=== PATIENT | female | born 1970 | race Caucasian/White ===

== ENCOUNTER 2024-12-16 06:11 | Day surgery (SDC) | payer BC ==
--- NOTE | 2024-12-13 14:16 | RAD REPORT ---
Procedure: Chest Pa And Lat (2 Views) HISTORY: Preop for hysterectomy COMPARISON: none FINDINGS: The lungs appear clear of acute infiltrate. No significant pleural effusion noted. The heart is mildly to moderately enlarged. IMPRESSION: No acute abnormality is displayed.
[2024-12-13 14:17] LABS: Sqamous Epithelial <5 /HPF (None Seen); Urine Crystals Unidentified Few /HPF (None Seen); Urine Culture Reflex Order NOT NEEDED; Urine Microscopic Reflex YN ORDER UMIC; Urine Yeast (Budding) Trace /HPF (None Seen)
[2024-12-13 14:23] LABS: Anion Gap 8.4 mEq/L (5.0-15.0); BUN Blood Urea Nitrogen 12.0 mg/dL (7-18); Glucose Level 83.0 mg/dL (74-106); Potassium 4.4 mEq/L (3.5-5.1)
[2024-12-13 14:44] LABS: Absolute Lymphocytes (CBC) 2.1 K/uL (0.7-4.9); Hematocrit 29.9 % (36.0-45.0); Hemoglobin 9.0 g/dL (12.0-15.0); MCH 19.8 pg (27.0-35.0); MCHC 30.0 g/dL (32.0-36.0); MCV 66.1 fL (80-100); MPV 7.0 fL (7.6-11.3); Nucleated RBC Absolute Count 0.0 (0-0); Nucleated Red Blood Cells % 0.0 % (0-0); RBC Red Blood Cell Count 4.53 M/uL (3.86-4.86); White Blood Count 6.70 thou/uL (4.3-10.9)
[2024-12-13 15:59] LABS: White Blood Cell Scan OK (OK)
[2024-12-13 16:00] LABS: Anisocytosis SLIGHT; Blood Morphology Comment NOTED (NOT SEEN); Hypochromasia 1+; Polychromasia SLIGHT
[2024-12-16] MEDS: Ringers Lactate 1,000 ML IV ONE ×2 (06:30→09:28)
[2024-12-16] MEDS: SCOPOLAMINE HYDROBROMIDE PATCH TD ONE (06:40)
[2024-12-16] MEDS ORDERED: ONDANSETRON 4 MG/2 ML VIAL ONE (06:54)
[2024-12-16] MEDS ORDERED: ROCURONIUM 50 MG/5 ML VIAL IV ONE (06:54)
[2024-12-16] MEDS ORDERED: LIDOCAINE 1% MPF 5 ML VIAL ONE (06:54)
[2024-12-16] MEDS ORDERED: KETAMINE HCL IN 0.9 % NACL 50 MG/5 ML SYRINGE IV ONE (06:54)
[2024-12-16] MEDS ORDERED: FENTANYL CITR 250 MCG/5 ML ONE (06:54)
[2024-12-16] MEDS ORDERED: MIDAZOLAM HCL 2 MG/2 ML INJ ONE (06:55)
[2024-12-16] MEDS: CEFAZOLIN SODIUM 2 GM/VIAL ONE (07:49)
[2024-12-16] MEDS: BUPIVACAINE 0.25% PF 30 ML VIAL ONE (07:50)
[2024-12-16] MEDS ORDERED: KETOROLAC 30 MG/ML INJ ONE (10:08)
[2024-12-16 10:45] LABS: Urine Specific Gravity/Preg 1.030 (1.005-1.030)
[2024-12-16 11:01] VITALS: O2SAT 100
[2024-12-16 11:34] VITALS: TEMP 97.3
[2024-12-16] MEDS: HYDROCODONE/APAP 5/325 MG TAB ONE (12:35)
[2024-12-16 14:29] VITALS: BP 162/80
--- NOTE | 2024-12-16 19:41 | OP ---
Date of Procedure: 12/16/2024 Surgeon: Adeline Cuevas MD Public Address Systems Mechanic: Angela Faulkner. Preoperative Diagnosis: Menorrhagia (AUB-L). Postoperative Diagnoses: Menorrhagia (AUB-L) and left ovarian cyst, and leiomyomata. Procedures Performed: Total laparoscopic hysterectomy, bilateral salpingo-oophorectomy and vaginal m orcellation. Anesthesia: General endotracheal. Estimated Blood Loss: 50. Specimens: Uterus, bilateral tubes and ovaries. Vaginally morcellator specimen has been submitted f or the uterus. Complications: No. Drains: No. Condition: Stable. Urine Output: 200. Fluids: 1400. Findings: Multiple large leiomyomata, omental adhesions to the posterior wall and cul-de-sac, left o varian cyst. Appendix absent. Liver unremarkable. Upper abdominal surfaces and omentum unremarkabl e. Vaginal cuff closed with 0 PDS sutures x5 and 5 ports on the abdominal wall. Indications: The patient is a 54-year-old female with 3 vaginal deliveries, presented with significa nt heavy menstrual periods. On ultrasound, she was found to have fibroids 4.6 cm, approximately in m ultiple locations. Endometrial sampling was performed and there was no atypia or malignancy. Discus sed all the different options of treatment, including IUD ablation, hysterectomy. The patient was co nsented for hysterectomy, bilateral salpingo-oophorectomy, and brought to the hospital. Description Of Procedure: In the preoperative area, she was reconsented. Her was present fo r this process. All questions were done to their satisfaction. She was taken back to the OR. She w as placed in a supine fashion on the operating table. And this were done to their satisfaction. She was then taken back to the OR, placed in a supine fashion on the operating table. 2 g of Ancef was given. After general anesthesia was given, she was placed in a dorsal lithotomy position using Lorne stirrups. Abdomen was prepped with ChloraPrep; vulva, vagina, and perineum with Betadine. Arms wer e tucked by the side. Patient was draped in a sterile fashion. SCDs were started. Time-out was don e and procedure started. Vaginal retractor was placed to expose the cervix. Anterior lip grasped wi th a single-tooth tenaculum, dilated to 16-Yi and a large cup uterine inflator was introduced and fixed in place. Cerrato was placed to drain the bladder. This area was draped. 1 cm supraumbilical curvilinear incision was made in the midline. Fascia incised with a 15 blade tag ged with 0 Vicryl sutures. Peritoneum entered sharply with Rosalinda. Bobby was introduced after adequa te insufflation, patient was placed in T-Laura after inspecting the peritoneal cavity. Please review the findings above. A 10 mm suprapubic mid midline port was placed and two 5 ports in the right and left lower quadrants, later left upper quadrant 5 port was placed due to the presence of the fibroids and for ease of diss ection on the right lateral wall. The left round ligament was isolated by opening the peritoneum superior and inferior to it. Once thi s ligament was taken down then dissection was carried cephalad towards the IP ligament. The mesosalp inx and the lateral wall was dissected. Medial leaf of the broad ligament was opened up sharply betw een the ureter and the IP and the IP ligament was taken down with the help of the LigaSure. Posterio r peritoneum dissected all the way down. There were significant omental adhesions to the posterior u terine wall and cul-de-sac. All these were taken down with the help of the LigaSure at different poi nts in time during this dissection. Anterior broad ligament was opened up. Bladder flap was developed as well on the left side all the w ay to the right, then the rest of the broad ligament was skeletonized to isolate the vessels. Vessel s were clearly defined and the ureter was dissected laterally by opening up the broad ligament grinder operator external tool ior leaf and dissecting it laterally. Going on the opposite side after the left upper quadrant port was placed, the round ligament was take n down the same fashion as the opposite side. Then, mesosalpinx opened up towards the base of the IP . Then the medial leaf of the broad ligament incised. A bigger pocket was created here and then IP was taken down with the help of the LigaSure. Posterior peritoneum dissected all the way to the leve l of the right uterosacral ligament and ureter and vessels were all dissected laterally. Anterior pe ritoneum connected to finish the bladder flap and the broad ligament dissected to skeletonize the ves sels. Once these were visualized, posterior cul-de-sac was cleared out first, the peritoneal incisio n was made, then vessels were taken down first on the right side as well as the cardinal ligaments. Then on the left side, they were taken down with the LigaSure and the forceps. Monopolar hook blade was used to perform a circumferential colpotomy and cervix was pulled out through the vagina with the help of Allis clamps. Vaginal morcellation: Mass clamps were placed on the cervix and then subsequently on the uterus and the fibroids to morcellate with a 10 blade. Once the entire morcellation was complete, a vaginal occ luder was placed. All the specimen was handed off for permanent pathology. This area was draped aga in. Gown and gloves were changed, and I went back laparoscopically to finish the cuff closure. After irrigation and suction, the posterior cul-de-sac carefully two angle simple 0 PDS sutures were placed and then 3 [id number] were placed full-thickness alongside the posterior peritoneum. On ce these were closed and well-opposed, thorough irrigation suction was performed in the pelvic cavity and after all the pedicles were checked and were hemostatic and ureters had no evidence of electrica l, mechanical, or thermal injury to them, the patient was flattened out, gas was desufflated after th e trocars were removed under direct vision. The umbilical port was removed and fascia was closed wit h the tag 0 Vicryl suture tied down, simple 0 Vicryl suture for the suprapubic fascial site closure, and 4-0 Vicryl for closure for all skin incisions. The vaginal occluder and Cerrato were removed. Ins trument, needle, and sponge counts were correct at the end of the case. The patient was recovered fr om anesthesia in the OR and taken to PACU in stable condition. Family debriefed. She will have a 1 week and 4 to 6 week postop. She has been clearly counseled about cessation of smoking and the risks that it has on delayed healing, wound dehiscence, cuff dehiscence, repeat surgery, wound infection. She will be offered hormone therapy at 1 week postop. She is planning to have pellets. If she schneider ges her mind, an estrogen patch should be adequate as well. SHANKAR/FRED Voice ID: [id number] Report ID: [id number]
== END 2024-12-16 14:20 | disposition home or self-care (01) ==
LOC: OR 06:11
PROVIDERS: ATTEND Obstetrics & Gynecology
PROC: 0UT24ZZ Resection of Bilateral Ovaries, Percutaneous Endoscopic Approach (ICD-10-PCS; 2024-12-16)
PROC: 0UT74ZZ Resection of Bilateral Fallopian Tubes, Percutaneous Endoscopic Approach (ICD-10-PCS; 2024-12-16)
PROC: 0UT94ZZ Resection of Uterus, Percutaneous Endoscopic Approach (ICD-10-PCS; principal; 2024-12-16 07:30)
DX: N92.0 Excessive and frequent menstruation with regular cycle (principal); N83.202 Unspecified ovarian cyst, left side; D21.9 Benign neoplasm of connective and other soft tissue, unspecified; N83.02 Follicular cyst of left ovary; N70.11 Chronic salpingitis
CPT/HCPCS: 93005; 85025; 81001; 80048; 36415; 86900; 86850; 81025; 86901; 88307; 71046; 58573; J3490; J2704; J2003; J2250; J3010; J1100; J2405; J7120 ×2; A4314; 88305; J1885